=== PATIENT | male | born 1950 | race Caucasian/White ===

== ENCOUNTER → 2017-09-18 | Outpatient (CLI) | payer OTHER, MEDICARE | LOC: BMCIMAGING 12:41 | PROVIDERS: ATTEND Internal Medicine Rheumatology | DX: M25.841 Other specified joint disorders, right hand (principal) ==

== ENCOUNTER 2018-07-12 10:05 | Inpatient (IN) | payer OTHER, MEDICARE ==
--- NOTE | 2018-07-12 06:14 | PDHPUP ---
History & Physical Update H&P update statement: This history and physical update is based on an assessment of the patient which was completed after admission or registration (within 24 hours), but prior to the surgery/procedure. H&P update: H&P reviewed & patient examined, no change in patient's condition since H&P completed
[~2018-07-12 10:05] MED LIST: ROPIVACAINE 0.2% 80 MG, EPINEPHrine 0.2 MG, KETOROLAC TROMETHAMINE 30 MG in SYRINGE 0 ML IU ONE; TRANEXAMIC ACID 3,000 MG in NS (SYRINGE) 50 ML IRR ONE; TRANEXAMIC ACID 3,000 MG/50 ML BAG IRR ONE
[2018-07-12] MEDS ORDERED: ceFAZolin 2 GM/DEXTROSE 100 ML IV ONE (10:26)
[2018-07-12] MEDS ORDERED: DEXAMETHASONE 4 MG/ML VIAL IVP ONE (10:26)
[2018-07-12] MEDS ORDERED: FAMOTIDINE 20 MG TAB PO ONE (10:26)
[2018-07-12] MEDS ORDERED: ACETAMINOPHEN 325 MG TAB PO ONE (10:26)
[2018-07-12] MEDS ORDERED: LIDOCAINE 1% 2 ML INJ ID PRN (10:28)
[2018-07-12] MEDS ORDERED: LR 1,000 ML IV ONE (10:28)
[2018-07-12] MEDS ORDERED: MIDAZOLAM 2 MG/2 ML VIAL ONE (12:11)
[2018-07-12] MEDS ORDERED: MIDAZOLAM 2 MG/2 ML VIAL IVP ONE (12:22)
--- NOTE | 2018-07-12 12:22 | PDANEPAE ---
ANE Past Medical History - Cardiovascular History Hx Hypertension: Yes Hx Arrhythmias: No Hx Chest Pain: No Hx Coronary Artery / Peripheral Vascular Disease: No Hx CHF / Valvular Disease: No Hx Palpitations: No Cardiovascular History Comment: high chol. pcp monitors bp medications - Pulmonary History Hx COPD: No Hx Asthma/Reactive Airway Disease: No Hx Recent Upper Respiratory Infection: No Hx Oxygen in Use at Home: No Hx Sleep Apnea: No Sleep Apnea Screening Result - Last Documented: Positive Pulmonary History Comment: robin triggers. sinus infection caused him to postpone surgery 06/12/18 - Neurologic History Hx Cerebrovascular Accident: No Hx Seizures: No Hx Dementia: No Neurologic History Comment: slipped vertebrae with injection 2 months ago - Endocrine History Hx Diabetes: No Obesity: no Endocrine History Comment: hx of partial thyroidectomy d/t hyperactive thyroid - Renal History Hx Renal Disorders: No - Liver History Hx Hepatic Disorders: No - Neurological & Psychiatric Hx Hx Neurological and Psychiatric Disorders: No - Cancer History Hx Cancer: No - Congenital Disorder History Hx Congenital Disorders: No - GI History Hx Gastrointestinal Disorders: Yes Gastrointestinal History Comment: reflux. hx of GIB on nsaids - Other Health History Other Health History: wears glasses. RA- no difficulty with neck ROM or pain noted with ROM - Chronic Pain History Chronic Pain: Yes (right knee an RA pain) - Surgical History Prior Surgeries: right knee reconstruction 1971. left knee scopes x3. hernia repair. partial thyroidectomy. bilateral elbows. left hand x2 ANE Review of Systems Review of Systems: - Exercise capacity METS (RN): 4 METS ANE Patient History - Allergies Allergies/Adverse Reactions: hydroxychloroquine [From Plaquenil] Allergy (Verified 06/25/18 10:53) hives and blistering NSAIDS (Non-Steroidal Anti-Inflamma Allergy (Verified 06/25/18 10:53) hx of GIB with nsaids - Home Medications Home Medications: Allopurinol [Allopurinol 300 MG (RX)] 300 mg PO HS 05/17/18 [Last Taken 07/05/18 ] Ascorbic Acid [Vitamin C] 1,000 mg PO HS 05/17/18 [Last Taken 06/28/18] Calcium Carbonate [Calcium] 500 mg PO HS 05/17/18 [Last Taken 06/28/18] Cholecalciferol (Vitamin D3) [Vitamin D3] 5,000 unit PO DAILY 05/17/18 [Last Taken 06/28/18] Ezetimibe [Zetia 10 MG (*)] 10 mg PO DAILY 05/17/18 [Last Taken 07/12/18] FOLIC ACID 0.8 mg PO DAILY 05/17/18 [Last Taken 07/07/18] Levothyroxine [Synthroid 112 mcg (*)] 112 mcg PO DAILY06 05/17/18 [Last Taken ] Losartan Potassium [Cozaar 50 mg (*)] 50 mg PO DAILY 05/17/18 [Last Taken ] Methotrexate Sodium [Rheumatrex] 7.5 mg PO WALTON 05/17/18 [Last Taken 07/07/18] Omeprazole 40 mg PO DAILY 05/17/18 [Last Taken 07/11/18] Rosuvastatin Calcium [Crestor 10mg (RX)] 10 mg PO DAILY 05/17/18 [Last Taken ] amLODIPine BESYLATE [Amlodipine Besylate] 5 mg PO DAILY 05/17/18 [Last Taken ] inFLIXimab [Remicade Inj 100 mg (*)] 300 mg IV Q56D 05/17/18 [Last Taken ] traMADol [Ultram 50 mg (*)] 50 mg PO BID PRN 05/17/18 [Last Taken 07/11/18] - NPO status NPO Since - Liquids (Date): 07/11/18 NPO Since - Liquids (Time): 22:00 NPO Since - Solids (Date): 07/11/18 NPO Since - Solids (Time): 19:00 - Smoking Hx Smoking Status: Former smoker - Family Anes Hx Family Hx Anesthesia Complications: none ANE Labs/Vital Signs - Vital Signs Blood Pressure: 144/97 Heart Rate: 80 Respiratory Rate: 16 O2 Sat (%): 95 Height: 180.34 cm Weight: 83.915 kg ANE Physical Exam - Airway Neck exam: decreased ROM Mallampati Score: Class 1 Mouth exam: normal dental/mouth exam - Pulmonary Pulmonary: no respiratory distress - Cardiovascular Cardiovascular: regular rate and rhythym - ASA Status ASA Status: II ANE Anesthesia Plan Anesthesia Plan: spinal Regional Anesthesia: adductor canal FNB
[2018-07-12] MEDS ORDERED: fentaNYL 100 MCG/2 ML INJ ONE (12:33)
[2018-07-12] MEDS ORDERED: PROPOFOL/EMULSION 500 MG/50 ML BOTTLE IV ONE ×2 (12:33→12:39)
[2018-07-12] MEDS ORDERED: PROMETHAZINE HCL 25 MG/ML INJ IVP PRN (13:03)
[2018-07-12] MEDS ORDERED: diphenhydrAMINE 25 MG CAP PO PRN (13:03)
[2018-07-12] MEDS ORDERED: CYCLOBENZAPRINE 10 MG TAB PO PRN (13:03)
[2018-07-12] MEDS ORDERED: TEMAZEPAM 15 MG CAP PO PRN (13:03)
[2018-07-12] MEDS ORDERED: METOCLOPRAMIDE 10 MG/2 ML VIAL IVP PRN (13:03)
[2018-07-12] MEDS ORDERED: ONDANSETRON DISINTEGRATING 4 MG TAB PO PRN (13:03)
[2018-07-12] MEDS ORDERED: PROMETHAZINE HCL 25 MG SUPPR PR PRN (13:03)
[2018-07-12] MEDS ORDERED: BISACODYL 10 MG SUPP PR PRN (13:03)
[2018-07-12] MEDS ORDERED: DIPHENOXYLATE/ATROPINE LOMOTIL 1 TAB PO PRN (13:03)
[2018-07-12] MEDS ORDERED: MAGNESIUM HYDROXIDE 30 ML UDCUP PO PRN (13:03)
[2018-07-12] MEDS ORDERED: POLYETHYLENE GLYCOL 3350 17 GM PKT PO PRN (13:03)
[2018-07-12] MEDS ORDERED: LACTULOSE 20 GM/30 ML UDCUP PO PRN (13:03)
[2018-07-12] MEDS ORDERED: ONDANSETRON 4 MG/2 ML VIAL IVP PRN ×2 (13:03→13:32)
[2018-07-12] MEDS ORDERED: traMADol 50 MG TAB PO PRN (13:05)
[2018-07-12] MEDS ORDERED: LR 1,000 ML IV SCH (13:30)
[2018-07-12] MEDS ORDERED: LR 500 ML IV PRN (13:32)
[2018-07-12] MEDS ORDERED: fentaNYL 100 MCG/2 ML INJ IVP PRN (13:32)
[2018-07-12] MEDS ORDERED: NALOXONE HCL 0.4 MG/ML INJ IVP PRN (13:32)
[2018-07-12] MEDS ORDERED: ROPIVACAINE HCL 150 MG/30 ML INJ ONE (13:56)
[2018-07-12] MEDS ORDERED: LIDOCAINE 2% 2 ML INJ ONE (13:56)
--- NOTE | 2018-07-12 14:04 | POSTOPPROG ---
Post Op Note Date of Operation: 07/12/18 Surgeon: Clint Orlando Motorcycle Designer: Ayala Orlando PAc Anesthesiologist: Ekaterina Anesthesia: Spinal Pre-op Diagnosis: r KNEE djd Post-op Diagnosis: same Indication: pain Procedure: R TKA with robot Findings: DJD knee Inf/Abcess present in the surg proc area at time of surgery?: No EBL: 50-100
[2018-07-12] MEDS ORDERED: oxyCODONE IR 5 MG TAB ONE (14:25)
[2018-07-12] MEDS: oxyCODONE IR 5 MG TAB PO PRN ×3 (14:26→21:29)
--- NOTE | 2018-07-12 14:34 | POSTANESTH ---
Post Anesthetic Evaluation Cardiovascular Status: Normal, Stable Respiratory Status: Normal, Stable Level of Consciousness/Mental Status: Can Participate in Eval Pain Control: Adequate, Prn Tx Ordered Nausea/Vomiting Control: Adequate, Prn Tx Ordered Complications Possibly Related to Anesthesia: None Noted
--- NOTE | 2018-07-12 14:52 | PDMN ---
Medical Necessity Medical necessity: Pt meets IP criteria per PA; est los >2 mn s/p R TKA (cpt 00205) POD #0; requiring further monitoring; comorbid advanced age, HTN, GI bleed, RA on Remicade; per H&P & order; 07/12/18
[2018-07-12] MEDS: ACETAMINOPHEN 325 MG TAB PO SCH ×2 (17:57→23:36)
[2018-07-12] MEDS: ASPIRIN 81 MG CHEWABLE TAB PO SCH (20:05)
[2018-07-12] MEDS: ceFAZolin 2 GM/DEXTROSE 100 ML IV SCH (20:05)
[2018-07-12] MEDS: FAMOTIDINE 20 MG TAB PO SCH (20:05)
[2018-07-12] MEDS: SENNOSIDES/DOCUSATE SODIUM TAB PO SCH (20:05)
[2018-07-13] MEDS: ceFAZolin 2 GM/DEXTROSE 100 ML IV SCH (04:29)
[2018-07-13] MEDS: ACETAMINOPHEN 325 MG TAB PO SCH (05:33)
[2018-07-13] MEDS ORDERED: LEVOTHYROXINE 112 MCG TAB PO SCH (06:00)
[2018-07-13 07:33] VITALS: BP 143/80
[2018-07-13] MEDS: FAMOTIDINE 20 MG TAB PO SCH (08:30)
[2018-07-13] MEDS: ASPIRIN 81 MG CHEWABLE TAB PO SCH (08:30)
[2018-07-13] MEDS: SENNOSIDES/DOCUSATE SODIUM TAB PO SCH (08:30)
[2018-07-13] MEDS ORDERED: LOSARTAN POTASSIUM 50 MG TAB PO SCH (09:00)
[2018-07-13] MEDS ORDERED: ROSUVASTATIN CALCIUM 10 MG TAB PO SCH (09:00)
[2018-07-13] MEDS ORDERED: amLODIPine BESYLATE 5 MG TAB PO SCH (09:00)
[2018-07-13] MEDS ORDERED: FOLIC ACID 1 MG TAB PO SCH (09:00)
[2018-07-13] MEDS ORDERED: EZETIMIBE 10 MG TAB PO SCH (09:00)
--- NOTE | 2018-07-13 10:48 | SOAPPROG ---
SOAP Progress Note Assessment/Plan: Assessment: patient is doing well s/p TKA pain is well controlled on oral pain meds VTE ppx: recommend ASA 81 mg BID for 4 weeks D/c planning: d/c to home today once released from PT Plan: 07/13/18 10:47 07/13/18 10:48 Subjective: patient is doing well, denies SOB ,chest pain and n/v Objective: Vital Signs Temp Pulse Resp BP Pulse Ox 36.6 C 67 16 143/80 H 97 07/13/18 07:33 07/13/18 07:33 07/13/18 07:33 07/13/18 08:31 07/13/18 07:33 Laboratory Results 07/13/18 04:26 07/12/18 07/13/18 07/14/18 05:59 05:59 05:59 Intake Total 2080 Output Total 1900 500 Balance 180 -500 incision dressing is clean and dry, NVI, +pf/df ICD10 Worksheet Patient Problems: Problems Problem Status Onset Primary localized osteoarthritis of right knee Acute
[2018-07-13] MEDS: oxyCODONE IR 5 MG TAB PO PRN (10:58)
--- NOTE | 2018-07-13 12:18 | ASMTLACE ---
LACE Length of stay for Answers: Less than 1 day current admission Acuity / Level of Answers: Yes Care: Did the patient have an inpatient admission? Comorbidities - select Answers: Opioid dependence all that apply / Chronic pain Other Notes: HTN; Hypothyroid # of Emergency department Answers: 0 visits in the last 6 months Score: 8 Date Signed: 07/13/2018 12:17 PM Electronically Signed By:Celena Ludwig RN
--- NOTE | 2018-07-14 03:56 | GOP ---
DATE OF OPERATION: 07/12/2018 SURGEON: Jose Orlando MD [employer]ASS[employer] INSPECTOR: Ayala Orlando, CAIO ANESTHESIA: Spinal. PREOPERATIVE DIAGNOSIS: Right knee osteoarthritis. POSTOPERATIVE DIAGNOSIS: Right knee osteoarthritis. PROCEDURE PERFORMED: Right total knee arthroplasty with computer navigation, robotic assist. FINDINGS: ESTIMATED BLOOD LOSS: 30 cc. INDICATIONS: The patient is a 67-year-old male with severe and progressive pain and deformity of the right knee unresponsive to conservative care. The risks and benefits of surgical intervention were explained in detail. DESCRIPTION OF PROCEDURE: The patient was brought to the operative room and placed on the table in t he supine position. Spinal anesthesia was induced without difficulty. A pneumatic tourniquet was appl ied about the right proximal thigh, and the leg was prepped and draped in a sterile fashion. The leg hall was applied. After exsanguination by elevation the tourniquet was inflated to 250 mmHg. Incision was made anterior medial from the tibial tuberosity to a point 2 cm proximal to the superior pole of the patella. Medial parapatellar arthrotomy was carried out from the superior pole of the pa tella and posteriorly in line with the fibers of the Type II VMO. Severe patellofemoral osteoarthrit is. The medial collateral ligament was elevated and the infrapatellar fat pad was resected. The patella was everted and the articular surface was excised. A 38 mm patellar button was placed. Attention was turned first to the distal aspect of the femur. After exposure of the femur, 2 half pi ns were placed for fixation of the femoral array. In a similar fashion, 2 pins were placed anteromed ial on the tibia for fixation of the tibial array. External land marking and registration of the hip center was performed without difficulty. Internal femoral and tibial registration was carried out w ithout difficulty and the femoral and tibial checkpoints were placed and verified for accuracy. Attention was turned to the femur. The foot print for the size 5 femoral component was cut with the saw using the [employer] robotic system and verified for accuracy against the CT based plan. In a similar f ashion, the saw was used to cut the footprint for the size 6 tibial component using the [employer] system an d verified for accuracy against the CT based plan. The tibial articular surface was excised without d ifficulty, followed by the intercondylar box cut. The knee was extended and the remnants of the medial and lateral meniscus were excised. The posterior capsule was injected with ropivacaine, epinephrine and Toradol. A size 6 tibial tray was positioned . Trial reduction was then carried out. There was excellent range of motion, alignment, and stability using the 6 x 9 mm polyethylene. All trials were then removed. The joint was thoroughly irrigated and carefully dried. The Press-Fit c omponents were implanted. The permanent 9 mm polyethylene was placed without difficulty. The tourniquet was deflated and all bleeders were coagulated. The wound was thoroughly irrigated and closed using interrupted sutures of 2-0 Vicryl for the joint capsule. The subcu was closed with 3-0 V icryl and the skin with 4-0 Monocryl. Dermabond and Steri-Strips were applied followed by a compress ricardo dressing. The patient was then moved from the operating room to the recovery room in good conditi on, having tolerated the procedure well. /[id number]/MODL
[2018-07-14] MEDS ORDERED: METHOTREXATE 2.5 MG TAB PO SCH (13:05)
== END 2018-07-13 14:19 | disposition home or self-care (01) | DRG 470 ==
LOC: F3N 10:05 → OBSVTOIN 13:06 → F3N 14:33
PROVIDERS: ADMIT Orthopaedic Surgery; ATTEND Orthopaedic Surgery
PROC: 0SRC0JZ Replacement of Right Knee Joint with Synthetic Substitute, Open Approach (ICD-10-PCS; principal; 2018-07-12 12:00)
PROC: 8E0Y0CZ Robotic Assisted Procedure of Lower Extremity, Open Approach (ICD-10-PCS; principal; 2018-07-12 12:00)
DX: M17.11 Unilateral primary osteoarthritis, right knee (principal); M06.9 Rheumatoid arthritis, unspecified; E03.9 Hypothyroidism, unspecified; M10.9 Gout, unspecified; E78.00 Pure hypercholesterolemia, unspecified; Z87.891 Personal history of nicotine dependence
CPT/HCPCS: 97116-GP; 97161-GP; 97530-GP; G8978-GP-CJ; G8979-GP-CI; G8980-GP-CI; J0171; J0690; J1100; J1885; J2250; J2704; J2795; J3010

== ENCOUNTER → 2018-07-19 | Outpatient (CLI) | payer OTHER, MEDICARE | LOC: FIMAGING 10:52 | PROVIDERS: ATTEND Orthopaedic Surgery | DX: M79.661 Pain in right lower leg (principal); M17.11 Unilateral primary osteoarthritis, right knee ==

== ENCOUNTER 2018-07-29 14:58 | Observation (INO) | payer OTHER, MEDICARE ==
[2018-07-29] MEDS ORDERED: ceFAZolin 2 GM/DEXTROSE 100 ML IV ONE (15:22)
[2018-07-29] MEDS ORDERED: TRANEXAMIC ACID 3,000 MG in NS (SYRINGE) 50 ML IRR ONE (15:22)
[2018-07-29] MEDS ORDERED: ROPIVACAINE 0.2% 80 MG, EPINEPHrine 0.2 MG, KETOROLAC TROMETHAMINE 30 MG in SYRINGE 0 ML IU ONE (15:22)
[2018-07-29] MEDS ORDERED: LR 1,000 ML IV ONE (15:23)
[2018-07-29] MEDS ORDERED: LIDOCAINE 1% 2 ML INJ ID PRN (15:23)
[2018-07-29] MEDS ORDERED: BUPIVACAINE/EPI 0.5% 30 ML SDV ONE (16:16)
[2018-07-29] MEDS ORDERED: LIDOCAINE 1% 300 MG/30 ML SDV ONE (16:16)
[2018-07-29] MEDS ORDERED: BACITRACIN 50,000 UNITS/10 ML SYR IRR ONE (16:17)
[2018-07-29] MEDS ORDERED: POLYMYXIN B SULFATE 500,000 UNIT/10 ML SYR IRR ONE (16:17)
[2018-07-29] MEDS ORDERED: MIDAZOLAM 2 MG/2 ML VIAL ONE (16:45)
[2018-07-29] MEDS ORDERED: fentaNYL 100 MCG/2 ML INJ ONE ×2 (16:47→17:17)
[2018-07-29] MEDS ORDERED: PROPOFOL 200 MG/20 ML VIAL ONE (16:47)
[2018-07-29] MEDS ORDERED: LIDOCAINE 2% 2 ML INJ ONE ×2 (16:49)
[2018-07-29] MEDS ORDERED: ONDANSETRON 4 MG/2 ML VIAL ONE (16:51)
[2018-07-29] MEDS ORDERED: DEXAMETHASONE 4 MG/ML VIAL ONE (16:51)
--- NOTE | 2018-07-29 16:53 | POSTANESTH ---
Post Anesthetic Evaluation Cardiovascular Status: Normal, Stable Respiratory Status: Normal, Stable Level of Consciousness/Mental Status: Can Participate in Eval, Mildly Sleepy, Arousable Pain Control: Adequate, Prn Tx Ordered Nausea/Vomiting Control: Adequate, Prn Tx Ordered Complications Possibly Related to Anesthesia: None Noted
--- NOTE | 2018-07-29 16:53 | PDANEPAE ---
ANE History of Present Illness right knee hematoma s/pTKA ANE Past Medical History - Cardiovascular History Hx Hypertension: Yes Hx Arrhythmias: No Hx Chest Pain: No Hx Coronary Artery / Peripheral Vascular Disease: No Hx CHF / Valvular Disease: No Hx Palpitations: No Cardiovascular History Comment: high chol. pcp monitors bp medications - Pulmonary History Hx COPD: No Hx Asthma/Reactive Airway Disease: No Hx Recent Upper Respiratory Infection: No Hx Oxygen in Use at Home: No Hx Sleep Apnea: No Pulmonary History Comment: robin triggers. sinus infection caused him to postpone surgery 06/12/18 - Neurologic History Hx Cerebrovascular Accident: No Hx Seizures: No Hx Dementia: No Neurologic History Comment: slipped vertebrae with injection 2 months ago - Endocrine History Hx Diabetes: No Hypothyroid: No Hyperthyroid: No Obesity: no Endocrine History Comment: hx of partial thyroidectomy d/t hyperactive thyroid - Renal History Hx Renal Disorders: No - Liver History Hx Hepatic Disorders: No - Neurological & Psychiatric Hx Hx Neurological and Psychiatric Disorders: No - Cancer History Hx Cancer: No - Congenital Disorder History Hx Congenital Disorders: No - GI History GERD: no Hx Gastrointestinal Disorders: Yes Gastrointestinal History Comment: reflux. hx of GIB on nsaids - Other Health History Other Health History: wears glasses. RA- no difficulty with neck ROM or pain noted with ROM - Chronic Pain History Chronic Pain: Yes (right knee an RA pain) - Surgical History Prior Surgeries: right knee reconstruction 1971. left knee scopes x3. hernia repair. partial thyroidectomy. bilateral elbows. left hand x2 ANE Review of Systems Review of systems is: negative Review of Systems: - Exercise capacity Exercise capacity: >=4 METS ANE Patient History - Allergies Allergies/Adverse Reactions: hydroxychloroquine [From Plaquenil] Allergy (Verified 06/25/18 10:53) hives and blistering NSAIDS (Non-Steroidal Anti-Inflamma Allergy (Verified 06/25/18 10:53) hx of GIB with nsaids - Home Medications Home medications: home medication list seen and reviewed Home Medications: Ascorbic Acid [Vitamin C] 1,000 mg PO HS 05/17/18 [Last Taken 07/08/18] Calcium Carbonate [Calcium] 500 mg PO HS 05/17/18 [Last Taken 07/08/18] Cholecalciferol (Vitamin D3) [Vitamin D3] 5,000 unit PO DAILY 05/17/18 [Last Taken 07/29/18] Ezetimibe [Zetia 10 MG (*)] 10 mg PO DAILY 05/17/18 [Last Taken 07/29/18] FOLIC ACID 0.8 mg PO DAILY 05/17/18 [Last Taken 07/29/18] Levothyroxine [Synthroid 112 mcg (*)] 112 mcg PO DAILY06 05/17/18 [Last Taken ] Losartan Potassium [Cozaar 50 mg (*)] 50 mg PO DAILY 05/17/18 [Last Taken ] Methotrexate Sodium [Rheumatrex] 7.5 mg PO WALTON 05/17/18 [Last Taken 07/28/18] Omeprazole 40 mg PO DAILY 05/17/18 [Last Taken 07/29/18] Rosuvastatin Calcium [Crestor] 10 mg PO DAILY 05/17/18 [Last Taken 07/29/18] amLODIPine BESYLATE [Amlodipine Besylate] 5 mg PO DAILY 05/17/18 [Last Taken ] inFLIXimab [Remicade Inj 100 mg (*)] 300 mg IV Q56D 05/17/18 [Last Taken ] traMADol [Ultram 50 mg (*)] 50 mg PO BID PRN 05/17/18 [Last Taken 07/25/18] - NPO status NPO Since - Liquids (Date): 07/29/18 NPO Since - Liquids (Time): 14:00 NPO Since - Solids (Date): 07/29/18 NPO Since - Solids (Time): 09:00 - Anes Hx Anes Hx: no prior problems - Smoking Hx Smoking Status: Former smoker - Family Anes Hx Family Hx Anesthesia Complications: none ANE Labs/Vital Signs - Vital Signs Blood Pressure: 140/82 Heart Rate: 72 Respiratory Rate: 16 O2 Sat (%): 94 Height: 180.34 cm Weight: 83.915 kg ANE Physical Exam - Airway Neck exam: FROM Mallampati Score: Class 1 Mouth exam: normal dental/mouth exam - Pulmonary Pulmonary: no respiratory distress - Cardiovascular Cardiovascular: regular rate and rhythym - ASA Status ASA Status: II ANE Anesthesia Plan Anesthesia Plan: GA w LMA
[2018-07-29] MEDS ORDERED: MIDAZOLAM 2 MG/2 ML VIAL IVP ONE (16:54)
[2018-07-29] MEDS ORDERED: ALBUTEROL 3 ML DEYVIAL IH PRN (17:23)
[2018-07-29] MEDS ORDERED: ONDANSETRON 4 MG/2 ML VIAL IVP PRN ×2 (17:23→19:24)
[2018-07-29] MEDS ORDERED: NALOXONE HCL 0.4 MG/ML INJ IVP PRN (17:23)
[2018-07-29] MEDS ORDERED: ACETAMINOPHEN 500 MG TAB PO PRN (17:23)
[2018-07-29] MEDS ORDERED: HYDROCODONE/APAP 5/325 TAB PO PRN (17:23)
[2018-07-29] MEDS ORDERED: LR 500 ML IV PRN (17:23)
[2018-07-29] MEDS ORDERED: PROMETHAZINE HCL 25 MG/ML INJ IVP PRN ×2 (17:23→19:24)
[2018-07-29] MEDS ORDERED: fentaNYL 100 MCG/2 ML INJ IVP PRN (17:23)
[2018-07-29] MEDS ORDERED: HYDROmorphONE/DILAUDID 2 MG/ML INJ IVP PRN (17:23)
--- NOTE | 2018-07-29 17:50 | POSTOPPROG ---
Post Op Note Date of Operation: 07/29/18 Surgeon: Clint Orlando Anesthesiologist: Dima Anesthesia: LMA Pre-op Diagnosis: R knee postop hematoma Post-op Diagnosis: same Indication: pain, swelling Procedure: R knee I&D deep with hematoma evacuation Findings: hematoma Inf/Abcess present in the surg proc area at time of surgery?: No EBL: 50-100
[2018-07-29] MEDS ORDERED: oxyCODONE IR 5 MG TAB ONE ×2 (18:05→18:45)
[2018-07-29] MEDS: oxyCODONE IR 5 MG TAB PO PRN ×2 (18:07→18:47)
[2018-07-29] MEDS ORDERED: HYDROmorphONE/DILAUDID 1 MG/ML INJ ONE (18:11)
[2018-07-29] MEDS: HYDROmorphONE/DILAUDID 1 MG/ML INJ IVP PRN ×3 (18:19→18:43)
[2018-07-29] MEDS ORDERED: ACETAMINOPHEN 500 MG TAB ONE (18:46)
--- NOTE | 2018-07-29 18:47 | GOP ---
DATE OF OPERATION: 07/29/2018 SURGEON: Jose Orlando MD NEUROSURGEON: Jose Orlando MD ANESTHESIA: LMA. PREOPERATIVE DIAGNOSIS: Right knee postoperative hematoma. POSTOPERATIVE DIAGNOSIS: Right knee postoperative hematoma. PROCEDURE PERFORMED: Right knee irrigation and debridement, deep, with evacuation of hematoma. FINDINGS: INDICATIONS: Patient is a 67-year-old gentleman with a right total knee replacement approximately 2- 1/2 weeks ago. He has had persistent pain and swelling and suspicion for a hematoma. The risks and benefits were explained to patient for proceeding with operative intervention; he had failed all nono perative measures and wished to proceed. DESCRIPTION OF PROCEDURE: The patient was identified in the preoperative holding area. His right lo wer extremity was marked. He was then brought back to the operating room. After a time-out and a st erile prep, patient was prepped and draped in the usual sterile fashion. Started with an incision th rough his old scar, opened that up, evacuated some prepatellar hematoma, made our arthrotomy and evac uated the deep space. Irrigated both of those copiously with bulb irrigation, and any excess fluid w as removed. We then reclosed the arthrotomy and the skin incision. He was placed in a sterile dress ing and brought to PACU in good condition with a well-perfused limb. The plan is for the patient to be weightbearing as tolerated and be discharged home; if he is unable to tolerate that, he will be admitted overnight. /[id number]/MODL
[2018-07-29] MEDS ORDERED: METOCLOPRAMIDE 10 MG/2 ML VIAL IVP PRN (19:24)
[2018-07-29] MEDS ORDERED: CYCLOBENZAPRINE 10 MG TAB PO PRN (19:24)
[2018-07-29] MEDS ORDERED: PROMETHAZINE HCL 25 MG SUPPR PR PRN (19:24)
[2018-07-29] MEDS ORDERED: MAGNESIUM HYDROXIDE 30 ML UDCUP PO PRN (19:24)
[2018-07-29] MEDS ORDERED: BISACODYL 10 MG SUPP PR PRN (19:24)
[2018-07-29] MEDS ORDERED: diphenhydrAMINE 25 MG CAP PO PRN (19:24)
[2018-07-29] MEDS ORDERED: oxyCODONE IR 5 MG TAB PO PRN (19:24)
[2018-07-29] MEDS ORDERED: LACTULOSE 20 GM/30 ML UDCUP PO PRN (19:24)
[2018-07-29] MEDS ORDERED: TEMAZEPAM 15 MG CAP PO PRN (19:24)
[2018-07-29] MEDS ORDERED: POLYETHYLENE GLYCOL 3350 17 GM PKT PO PRN (19:24)
[2018-07-29] MEDS ORDERED: DIPHENOXYLATE/ATROPINE LOMOTIL 1 TAB PO PRN (19:24)
[2018-07-29] MEDS ORDERED: ONDANSETRON DISINTEGRATING 4 MG TAB PO PRN (19:24)
[2018-07-29] MEDS ORDERED: LR 1,000 ML IV SCH (19:30)
[2018-07-29] MEDS ORDERED: DIAZEPAM 5 MG TAB PO PRN (20:40)
[2018-07-29] MEDS: ASPIRIN 81 MG CHEWABLE TAB PO SCH (20:54)
[2018-07-29] MEDS: SENNOSIDES/DOCUSATE SODIUM TAB PO SCH (20:54)
[2018-07-29] MEDS: FAMOTIDINE 20 MG TAB PO SCH (20:54)
[2018-07-30] MEDS: ceFAZolin 2 GM/DEXTROSE 100 ML IV SCH ×2 (00:50→08:12)
[2018-07-30] MEDS: ACETAMINOPHEN 325 MG TAB PO SCH ×2 (00:51→06:46)
[2018-07-30] MEDS ORDERED: PNEUMOC 13-VAL CONJ-DIP CRM/PF 0.5 ML SYR IM ONE (07:50)
[2018-07-30] MEDS: FAMOTIDINE 20 MG TAB PO SCH (08:10)
[2018-07-30] MEDS: ASPIRIN 81 MG CHEWABLE TAB PO SCH (08:11)
[2018-07-30] MEDS: SENNOSIDES/DOCUSATE SODIUM TAB PO SCH (08:11)
[2018-07-30] MEDS ORDERED: traMADol 50 MG TAB PO PRN (08:35)
[2018-07-30] MEDS ORDERED: LEVOTHYROXINE 112 MCG TAB PO SCH (08:45)
[2018-07-30] MEDS ORDERED: ROSUVASTATIN CALCIUM 10 MG TAB PO SCH (09:00)
[2018-07-30] MEDS ORDERED: amLODIPine BESYLATE 5 MG TAB PO SCH (09:00)
[2018-07-30] MEDS ORDERED: EZETIMIBE 10 MG TAB PO SCH (09:00)
[2018-07-30] MEDS ORDERED: FOLIC ACID 0.8 MG PO SCH (09:00)
[2018-07-30] MEDS ORDERED: LOSARTAN POTASSIUM 50 MG TAB PO SCH (09:00)
--- NOTE | 2018-07-30 09:49 | SOAPPROG ---
SOAP Progress Note Assessment/Plan: Assessment: POD 1 s/p wash out of R TKA due to hematoma pain is improved, pain level of 1 today continue Aspirin 81 mg BID f/u in clinic on gentle ROM PT ok sunday Plan: 07/30/18 09:48 Subjective: patient states pain is improved Objective: Vital Signs Temp Pulse Resp BP Pulse Ox 36.3 C 58 L 16 124/75 H 98 07/30/18 07:29 07/30/18 07:29 07/30/18 07:29 07/30/18 07:29 07/30/18 07:29 Laboratory Results 07/30/18 04:15 07/29/18 07/30/18 07/31/18 05:59 05:59 05:59 Intake Total 2750 Output Total 1055 Balance 1695 RLE: incision dressing is clean and dry ICD10 Worksheet Patient Problems: Problems Problem Status Onset Hematoma Acute Primary localized osteoarthritis of right knee Acute
[2018-07-30 10:37] VITALS: BP 130/80
== END 2018-07-30 11:08 | disposition home or self-care (01) ==
LOC: FSGY 14:58 → F3E 19:35 → F3N 20:07
PROVIDERS: ADMIT Orthopaedic Surgery; ATTEND Orthopaedic Surgery
PROC: 0J9L0ZZ Drainage of Right Upper Leg Subcutaneous Tissue and Fascia, Open Approach (ICD-10-PCS; principal; 2018-07-29 17:00)
DX: M96.840 Postprocedural hematoma of a musculoskeletal structure following a musculoskeletal system procedure (principal); Z96.651 Presence of right artificial knee joint; M10.9 Gout, unspecified; K21.9 Gastro-esophageal reflux disease without esophagitis; Z96.621 Presence of right artificial elbow joint; Z96.622 Presence of left artificial elbow joint
CPT/HCPCS: 27301; 90670; 90686; 97161; G0008; G0009; G8978; G8979; G8980; J0171; J0690; J1100; J1170; J1885; J2250; J2405; J2704; J2795; J3010

== ENCOUNTER 2018-11-15 05:59 | Observation (INO) | payer OTHER, MEDICARE ==
[2018-11-15] MEDS ORDERED: TRANEXAMIC ACID 3,000 MG in NS (SYRINGE) 50 ML IRR ONE (06:00)
[2018-11-15] MEDS ORDERED: ROPIVACAINE 0.2% 80 MG, EPINEPHrine 0.2 MG, KETOROLAC TROMETHAMINE 30 MG in SYRINGE 0 ML IU ONE (06:00)
--- NOTE | 2018-11-15 06:12 | PDGENHP ---
History and Physical History and Physical: Patient Name ERICKA SALAS (68yo, M) ID# [id number] Appt. Date/Time 11/14/2018 09: 00AM 1950 Service Dept. MAIN OFFICE Provider AYALA ORLANDO PA-C Insurance Med Primary: [place]MED[place]ARE) Insurance # : [id number] Med Secondary: A[employer] (MEDICARE SUPPLEMENT) Insurance # : [id number] Prescription: ORX - Member is eligible. details Chief Complaint None recorded. 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 08/16/18 filled [facility] amLODIPine 5 mg tablet TK 1 T PO QD 09/06/18 filled [facility] celecoxib 200 mg capsule take 2 capsules the night before surgery with dinner then one tab once daily with food for 3 weeks 11/14/18 prescribed Ayala Orlando PA-C ezetimibe 10 mg tablet 1 tablet(s) every day. 08/22/18 filled [facility] folic acid 1 mg tablet 06/27/18 entered Darron Avendano levoFLOXacin 500 mg tablet 06/10/18 filled [facility] levothyroxine 112 mcg tablet 09/20/18 filled [facility] losartan 50 mg tablet TK 1 T PO QD 09/06/18 filled [facility] meloxicam 15 mg tablet 10/30/18 filled [facility] metHOTREXate sodium 2.5 mg tablet 11/07/18 filled [facility] omeprazole 40 mg capsule,delayed release 10/26/18 filled [facility] omeprazole ER 20 mg capsule,extended release start 10/15/2012 10/15/12 filled Jaelny Yeboahierrez oxyCODONE 5 mg tablet Take 1 tabs every 4 hours as needed for pain 11/14/18 prescribed Ayala Orlando PA-C prednisoLONE acetate 1 % eye drops,suspension 11/13/18 filled [facility] Remicade start 10/30/2017 10/30/17 filled Jaelyn Serafin rosuvastatin 10 mg tablet 1 tablet(s) every day. 08/22/18 filled [facility] traMADol 50 mg tablet 1 tablet(s) as needed. 06/25/18 filled [facility] Vaccines None recorded. Problems Reviewed Problems No known problems History of total knee arthroplasty - Onset: 09/02/2018 Family History Reviewed Family History Mother - Arthritis (onset age: 50) ( age: 83) Father - Heart disease (onset age: 60) ( age: 73) Social History Reviewed Social History Smoking Status: Former smoker Non-smoker Occupation: retried Employer: retried Occupational health risks: dust Has smoked since age: 2 Chewing tobacco: none Alcohol intake: Occasional Alcohol-years of use: 40 Caffeine intake: Moderate Illicit drugs: 0 Exercise level: Occasional Sporting activities: sales associate fishing Dominance: Right Education: 12 Live alone or with others?: with others Surgical History Reviewed Surgical History Total knee arthroplasty - 08/19/2018 Total knee arthroplasty - 07/29/2018 Total knee arthroplasty - 07/12/2018 Orthopaedic Surgery - 09/28/2016 Thyroid Surgery - 10/15/1979 Past Medical History Reviewed Past Medical History Arthritis: Y Elevated Cholesterol: Y GERD/Reflux: Y Gout: Y Have you had a blood transfusion since 1979: Y Screening None recorded. HPI 68 yo male who is 4 months s/p R TKA. Patient has had issues postoperatively with ROM and pain. Patient has had a postoperative course complicated by hemarthrosis with wash out 2.5 weeks postop, JANIA 7 weeks postop. He has been diligently going to PT numerous times per week, tried jazz splint with limited improvement in ROM. Patient takes oxycodone as needed for pain. Presents today with . YVES MARINELLI as noted in the HPI Physical Exam Patient is a 68-year-old male. Gait and Station: Appearance: antalgic gait and ambulates with cane. Cardiovascular System: Arterial Pulses Right: dorsalis pedis normal and posterior tibialis normal. Edema Right: no edema. Lymph Nodes: Inspection/Palpation Right: no popliteal LAD. Knees: Inspection Right: no deformity, induration, warmth, or erythema and normal axial alignment and swelling. Stability Right: no laxity, subluxation, or ligamentous instability and anterior drawer sign negative and posterior drawer sign negative. Strength Right: no hamstring weakness or quadriceps weakness and flexion 5/5 and extension 5/5. Skin: Right Lower Extremity: normal and (normal) lower extremities: knee: right : incision: well-healed. Neurologic: Sensation on the Right: L2 normal, L3 normal, L4 normal, and L5 normal. RLE: mild-mod swelling, ROM 5-90. 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 Recommend Right knee open lysis of adhesions and potential poly swap for treatment. Discussed risks and benefits of operative intervention including but not limited to bleeding, infection, need for further surgery, blood clots, blood clots going to the lungs and rare perioperative complications including stroke, heart attack and . Patient understands risks and wishes to proceed. Informed consent was obtained today Postoperative medications were written today including ASA for VTE prophylaxis postop Right open lysis of adhesions and poly swapscheduled recommend CPM machine postop, daily PTx2 weeks. patient and his understand. 1. Acute postoperative pain G89.18: Other acute postprocedural pain oxycodone 5 mg tablet - Take 1 tabs every 4 hours as needed for pain Qty: 42 tablet(s) Refills: 0 Pharmacy: [facility] [id number] Note to Pharmacy: postop TKA pain medication oxycodone 5 mg tablet - Take 1 tabs every 4 hours as needed for pain Qty: 40 tablet(s) Refills: 0 Pharmacy: [facility] [id number] 2. Prophylactic anticoagulation given Z76.89: Persons encountering health services in other specified circumstances celecoxib 200 mg capsule - take 2 capsules the night before surgery with dinner then one tab once daily with food for 3 weeks Qty: 23 capsule(s) Refills : 0 Pharmacy: [facility] [id number] Note to Pharmacy: no refills, patient must contact provider first, less pills is ok if too expensive for patient 3. Osteoarthritis of knee M17.11: Unilateral primary osteoarthritis, right knee 4. 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 History of total knee arthroplasty Z96.651: Presence of right artificial knee joint Return to Office Amy Orlando M.D. for Surgery 75 at Surgery on 11/15/2018 at 07:15 AM Ayala Orlando PA-C for Surgery 75 at Surgery on 11/15/2018 at 07:15 AM Encounter Sign-Off Encounter signed-off by Ayala Orlando PA-C, 11/14/2018. Encounter performed and documented by Ayala Orlando PA-C Encounter reviewed & signed by Ayala Orlando PA-C on 11/14/2018 at 7:50pm There is not enough information to calculate an E&M code
[2018-11-15] MEDS ORDERED: FAMOTIDINE 20 MG TAB PO ONE (06:13)
[2018-11-15] MEDS ORDERED: DEXAMETHASONE 4 MG/ML VIAL IVP ONE (06:13)
[2018-11-15] MEDS ORDERED: ACETAMINOPHEN 325 MG TAB PO ONE (06:13)
[2018-11-15] MEDS ORDERED: ceFAZolin 2 GM/DEXTROSE 100 ML IV ONE (06:13)
[2018-11-15] MEDS ORDERED: LR 1,000 ML IV ONE (06:14)
--- NOTE | 2018-11-15 06:22 | PDHPUP ---
History & Physical Update H&P update statement: This history and physical update is based on an assessment of the patient which was completed after admission or registration (within 24 hours), but prior to the surgery/procedure. H&P update: no change in patient's condition since H&P completed
[2018-11-15] MEDS ORDERED: MIDAZOLAM 2 MG/2 ML VIAL IVP ONE (06:58)
[2018-11-15] MEDS ORDERED: TRANEXAMIC ACID 3,000 MG/50 ML BAG IRR ONE (07:00)
--- NOTE | 2018-11-15 07:01 | PDANEPAE ---
ANE History of Present Illness lysis of adhesions ANE Past Medical History - Cardiovascular History Hx Hypertension: Yes Hx Arrhythmias: No Hx Chest Pain: No Hx Coronary Artery / Peripheral Vascular Disease: No Hx CHF / Valvular Disease: No Hx Palpitations: No Cardiovascular History Comment: high chol. pcp monitors bp medications - Pulmonary History Hx COPD: No Hx Asthma/Reactive Airway Disease: No Hx Recent Upper Respiratory Infection: No Hx Oxygen in Use at Home: No Hx Sleep Apnea: No Sleep Apnea Screening Result - Last Documented: Positive Pulmonary History Comment: robin triggers - Neurologic History Hx Cerebrovascular Accident: No Hx Seizures: No Hx Dementia: No Neurologic History Comment: slipped vertebrae with injection 2 months ago - Endocrine History Hx Diabetes: No Endocrine History Comment: hx of partial thyroidectomy d/t hyperactive thyroid - Renal History Hx Renal Disorders: No - Liver History Hx Hepatic Disorders: No - Neurological & Psychiatric Hx Hx Neurological and Psychiatric Disorders: No - Cancer History Hx Cancer: No - Congenital Disorder History Hx Congenital Disorders: No - GI History Hx Gastrointestinal Disorders: Yes Gastrointestinal History Comment: reflux. hx of GIB on nsaids - Other Health History Other Health History: wears glasses. RA- no difficulty with neck ROM or pain noted with ROM - Chronic Pain History Chronic Pain: Yes (generalized pain with RA) - Surgical History Prior Surgeries: right knee reconstruction 1971. left knee scopes x3. hernia repair. partial thyroidectomy. bilateral elbows. left hand x2. right TKA 2018 ANE Review of Systems Review of Systems: - Exercise capacity METS (RN): 4 METS ANE Patient History - Allergies Allergies/Adverse Reactions: hydroxychloroquine [From Plaquenil] Allergy (Verified 11/15/18 06:30) hives and blistering NSAIDS (Non-Steroidal Anti-Inflamma Allergy (Verified 11/15/18 06:30) hx of GIB with nsaids - Home Medications Home medications: home medication list seen and reviewed Home Medications: Ezetimibe [Zetia 10 MG (*)] 10 mg PO DAILY 05/17/18 [Last Taken 11/15/18] Levothyroxine [Synthroid 112 mcg (*)] 112 mcg PO DAILY06 05/17/18 [Last Taken ] Losartan Potassium [Cozaar 50 mg (*)] 50 mg PO DAILY 05/17/18 [Last Taken ] Omeprazole 40 mg PO DAILY 05/17/18 [Last Taken 11/15/18] Rosuvastatin Calcium [Crestor] 10 mg PO DAILY 05/17/18 [Last Taken 11/15/18] amLODIPine BESYLATE [Amlodipine Besylate] 5 mg PO DAILY 05/17/18 [Last Taken 11/02] inFLIXimab [Remicade Inj 100 mg (*)] 300 mg IV Q56D 05/17/18 [Last Taken ] traMADol [Ultram 50 mg (*)] 50 mg PO BID PRN 05/17/18 [Last Taken 11/13/18] Allopurinol [Allopurinol 300 MG (RX)] 300 mg PO HS 10/25/18 [Last Taken 11/08/18 ] Ascorbic Acid [Vitamin C 500 mg (*)] 1,000 mg PO HS 10/25/18 [Last Taken ] Cholecalciferol Vit D3 [Vitamin D3 (*)] 5,000 units PO DAILY 10/25/18 [Last Taken 11/08/18] Folic Acid [Folic Acid 1 MG (*)] 1 mg PO DAILY 10/25/18 [Last Taken 11/08/18] Meloxicam 15 mg PO DAILY 10/25/18 [Last Taken 11/08/18] oxyCODONE IR [Oxycodone Ir (*)] 5 mg PO HS PRN 10/25/18 [Last Taken 11/14/18 22: 00] Methotrexate 11/01/18 [Last Taken 11/01/18] - NPO status NPO Status: no food or drink >8 hours NPO Since - Liquids (Date): 11/15/18 NPO Since - Liquids (Time): 04:00 NPO Since - Solids (Date): 11/14/18 NPO Since - Solids (Time): 18:00 - Anes Hx Anes Hx: no prior problems - Smoking Hx Smoking Status: Former smoker - Alcohol Use Alcohol Use: None - Family Anes Hx Family Anes Hx: none Family Hx Anesthesia Complications: none ANE Labs/Vital Signs - Vital Signs Blood Pressure: 147/95 Heart Rate: 68 Respiratory Rate: 16 O2 Sat (%): 96 Height: 180.34 cm Weight: 86.183 kg ANE Physical Exam - Airway Neck exam: FROM Mallampati Score: Class 2 Mouth exam: normal dental/mouth exam - Pulmonary Pulmonary: no respiratory distress - Cardiovascular Cardiovascular: regular rate and rhythym - ASA Status ASA Status: II ANE Anesthesia Plan Anesthesia Plan: spinal Regional Anesthesia: single shot NB (*/- ADC block )
[2018-11-15] MEDS ORDERED: PROPOFOL/EMULSION 500 MG/50 ML BOTTLE IV ONE (07:13)
[2018-11-15] MEDS ORDERED: fentaNYL 100 MCG/2 ML INJ ONE (07:13)
[2018-11-15] MEDS ORDERED: PROPOFOL 200 MG/20 ML VIAL ONE (07:54)
[2018-11-15] MEDS ORDERED: LACTULOSE 20 GM/30 ML UDCUP PO PRN (08:31)
[2018-11-15] MEDS ORDERED: ONDANSETRON 4 MG/2 ML VIAL IVP PRN ×2 (08:31→08:53)
[2018-11-15] MEDS ORDERED: PROMETHAZINE HCL 25 MG SUPPR PR PRN (08:31)
[2018-11-15] MEDS ORDERED: oxyCODONE IR 5 MG TAB PO PRN ×2 (08:31→08:53)
[2018-11-15] MEDS ORDERED: DIPHENOXYLATE/ATROPINE LOMOTIL 1 TAB PO PRN (08:31)
[2018-11-15] MEDS ORDERED: METOCLOPRAMIDE 10 MG/2 ML VIAL IVP PRN (08:31)
[2018-11-15] MEDS ORDERED: PROMETHAZINE HCL 25 MG/ML INJ IVP PRN ×2 (08:31→08:53)
[2018-11-15] MEDS ORDERED: diphenhydrAMINE 25 MG CAP PO PRN (08:31)
[2018-11-15] MEDS ORDERED: ONDANSETRON DISINTEGRATING 4 MG TAB PO PRN (08:31)
[2018-11-15] MEDS ORDERED: MAGNESIUM HYDROXIDE 30 ML UDCUP PO PRN (08:31)
[2018-11-15] MEDS ORDERED: CYCLOBENZAPRINE 10 MG TAB PO PRN (08:31)
[2018-11-15] MEDS ORDERED: TEMAZEPAM 15 MG CAP PO PRN (08:31)
[2018-11-15] MEDS ORDERED: BISACODYL 10 MG SUPP PR PRN (08:31)
[2018-11-15] MEDS ORDERED: POLYETHYLENE GLYCOL 3350 17 GM PKT PO PRN (08:31)
--- NOTE | 2018-11-15 08:31 | POSTOPPROG ---
Post Op Note Date of Operation: 11/15/18 Surgeon: Clint Orlando Industrial Relations Counselor: Kristin Tello PA-C Anesthesiologist: dr. meek Anesthesia: Spinal, Other (Specify) (adductor canal block) Pre-op Diagnosis: right knee ankylosis Post-op Diagnosis: same Indication: limited ROM Procedure: open lysis of right knee Findings: significant scar tissue, thick joint capsule Inf/Abcess present in the surg proc area at time of surgery?: No EBL: 50-100
[2018-11-15] MEDS ORDERED: traMADol 50 MG TAB PO PRN (08:34)
[2018-11-15] MEDS ORDERED: ALBUTEROL 3 ML DEYVIAL IH PRN (08:53)
[2018-11-15] MEDS ORDERED: fentaNYL 100 MCG/2 ML INJ IVP PRN (08:53)
[2018-11-15] MEDS ORDERED: LR 500 ML IV PRN (08:53)
[2018-11-15] MEDS ORDERED: LABETALOL HCL 5 MG/ML 20 ML MDV IVP PRN (08:53)
[2018-11-15] MEDS ORDERED: DEXAMETHASONE 4 MG/ML VIAL IVP PRN (08:53)
[2018-11-15] MEDS ORDERED: NALOXONE HCL 0.4 MG/ML INJ IVP PRN (08:53)
[2018-11-15] MEDS ORDERED: PHENYLEPHRINE HCL 100 MCG/ML SYR IVP PRN (08:53)
[2018-11-15] MEDS ORDERED: LR 1,000 ML IV SCH (09:00)
[2018-11-15] MEDS: ROSUVASTATIN CALCIUM 10 MG TAB PO SCH (12:01)
[2018-11-15] MEDS: SENNOSIDES/DOCUSATE SODIUM TAB PO SCH ×2 (12:01→21:10)
[2018-11-15] MEDS: PANTOPRAZOLE SODIUM 40 MG TAB PO SCH (12:01)
[2018-11-15] MEDS: ACETAMINOPHEN 325 MG TAB PO SCH ×2 (12:21→18:06)
[2018-11-15] MEDS: ceFAZolin 2 GM/DEXTROSE 100 ML IV SCH ×2 (14:08→21:10)
[2018-11-15] MEDS: ASPIRIN 81 MG CHEWABLE TAB PO SCH (21:10)
[2018-11-15] MEDS: FAMOTIDINE 20 MG TAB PO SCH (21:10)
[2018-11-16] MEDS: ACETAMINOPHEN 325 MG TAB PO SCH ×3 (00:51→12:56)
[2018-11-16] MEDS ORDERED: LEVOTHYROXINE 112 MCG TAB PO SCH (06:00)
[2018-11-16] MEDS ORDERED: amLODIPine BESYLATE 5 MG TAB PO SCH (09:00)
[2018-11-16] MEDS ORDERED: LOSARTAN POTASSIUM 50 MG TAB PO SCH (09:00)
[2018-11-16] MEDS ORDERED: EZETIMIBE 10 MG TAB PO SCH (09:00)
[2018-11-16] MEDS: ROSUVASTATIN CALCIUM 10 MG TAB PO SCH (09:07)
[2018-11-16] MEDS: ASPIRIN 81 MG CHEWABLE TAB PO SCH (09:07)
[2018-11-16] MEDS: SENNOSIDES/DOCUSATE SODIUM TAB PO SCH (09:07)
[2018-11-16] MEDS: FAMOTIDINE 20 MG TAB PO SCH (09:07)
[2018-11-16] MEDS: PANTOPRAZOLE SODIUM 40 MG TAB PO SCH (09:08)
[2018-11-16 12:00] VITALS: BP 147/80
--- NOTE | 2018-11-16 13:45 | SOAPPROG ---
[facility] Progress Note Assessment/Plan: Assessment: Patient is doing well POD 1 open lysis of adhesions due to ankylosis of right knee in setting of RTKA pain is well controlled VTE ppx: recommend aspirin 81 mg twice daily for 4 weeks. d/c planning: d/c to home today. Plan: 11/16/18 13:44 Subjective: patient is doing well Objective: Vital Signs Temp Pulse Resp BP Pulse Ox 36.6 C 67 14 147/80 H 98 11/16/18 12:00 11/16/18 12:00 11/16/18 12:00 11/16/18 12:00 11/16/18 12:00 Laboratory Results 11/16/18 05:56 11/15/18 11/16/18 11/17/18 05:59 05:59 05:59 Intake Total 1180 Output Total 1000 Balance 180 RLE: incision dressing is clean and dry, NVI, +pf/df ICD10 Worksheet Patient Problems: Problems Problem Status Onset Ankylosis of right knee Acute Hematoma Acute Primary localized osteoarthritis of right knee Acute
--- NOTE | 2018-11-20 01:08 | GOP ---
[f rep st] OPERATIVE REPORT DATE OF OPERATION: 11/15/2018 SURGEON: Jose Orlando MD SUBWAY TRAIN DRIVER: Kristin Tello PA-C. ANESTHESIA: Spinal. PREOPERATIVE DIAGNOSIS: Right knee adhesions and stiffness, status post right total knee arthroplast y. POSTOPERATIVE DIAGNOSIS: Right knee adhesions and stiffness, status post right total knee arthroplas ty. PROCEDURE PERFORMED: Right knee open lysis of adhesions. FINDINGS: ESTIMATED BLOOD LOSS: Minimal. INDICATIONS: The patient is a 68-year-old gentleman who underwent a right total knee arthroplasty. Had a difficult postoperative course and had nonprogressive range of motion with physical therapy, ma nipulation, or anesthesia. The patient had failed to progress and was starting to lose range of natasha on. The decision was made to proceed with open lysis of adhesions and exploration of the joint. The risks and benefits were explained to the patient and informed consent was obtained. DESCRIPTION OF PROCEDURE: The patient was identified in the preoperative holding area. His right lo wer extremity was marked. He was then brought back to the operating room. After induction of spinal anesthesia, he was positioned on the table. A nonsterile tourniquet was placed on his right upper t high. This tourniquet was not used. We then took a timeout, confirming the patient, laterality, all ergies, implant availability. We then proceeded to make an incision through the prior incision area. There was a copious amount of scar tissue. We made a medial parapatellar arthrotomy. Thick capsul e and scar tissue were noted. There was adherence of the quadriceps tendon onto the distal aspect of the femur. This was released. Excess scar tissue was removed. The knee was able to go through a r oksana of motion from 0 to 120 with minimal difficulty, much improved from preoperative. The incision was copiously irrigated. Topical tranexamic acid was placed. Joint cocktail injection was used. We then closed the incision in layers. The patient was placed in a sterile dressing and brought to PAC U in good condition with a well perfused limb. The plan is to make the patient weightbear as tolerated and use a CPM machine. /[id number]/MODL
--- NOTE | 2018-11-20 09:10 | GDS ---
[f rep st] DISCHARGE SUMMARY ADMISSION DIAGNOSIS: Ankylosis of right knee in setting of right total knee arthroplasty. DISCHARGE DIAGNOSIS: Ankylosis of right knee in setting of right total knee arthroplasty. PROCEDURE: Open lysis of adhesions. VTE PROPHYLAXIS: Recommend aspirin 8I mg twice daily for 4 weeks. BRIEF DESCRIPTION OF HOSPITAL STAY: The patient tolerated the procedure well and has passed physical therapy. The patient was given appropriate antibiotic prophylaxis and venous thromboembolism prophylaxis. The patient's pain was well controlled on oral pain medication, patient was holding down food, and had urinated. Decision was made to discharge the patient. The patient was given post-operative prescriptions pre-operatively. PLAN: To follow up as scheduled Dr. Orlando office in 3 weeks. We recommend daily physical therapy for the next 2 weeks, also including use of CPM machine at home 30 minutes on, 60 minutes off, 0 to 90 degrees. Patient to call with questions. /[id number]/MODL MTDD
[2018-11-21] MEDS ORDERED: METHOTREXATE 2.5 MG TAB PO SCH (08:45)
== END 2018-11-16 14:21 | disposition home or self-care (01) ==
LOC: F3N 05:59 → INTOOBSV 05:59 → F3N 07:54
PROVIDERS: ADMIT Orthopaedic Surgery; ATTEND Orthopaedic Surgery
PROC: 0SNC0ZZ Release Right Knee Joint, Open Approach (ICD-10-PCS; principal; 2018-11-15 07:15)
DX: M24.661 Ankylosis, right knee (principal); M25.561 Pain in right knee; Z96.651 Presence of right artificial knee joint
CPT/HCPCS: 27435; 73560; 97116; 97161; 97530; J0171; J0690; J1100; J1885; J2250; J2704; J2795; J3010